=== PATIENT | male | born 1940 | race Caucasian/White ===

== ENCOUNTER 2017-04-05 09:39 | Emergency (ER) | payer MEDICARE, OTHER ==
[~2017-04-05] VITALS: Ht 182.9 cm; Wt 87.1 kg
[~2017-04-05 09:39] MED LIST changes: -ASPI81TA94 PO; -ATOR40TA24 PO; -CAR3.125 PO; -LISI-362 PO; -RANI300C8 PO; -WARF5TAB23 PO
--- NOTE | 2017-04-05 09:42 | ER Report ---
History and Physical Time Seen By MD: 09:42 HPI/ROS CHIEF COMPLAINT: Fall last evening HISTORY OF PRESENT ILLNESS: Patient is a 76-year-old male who presents to the emergency department after a fall that occurred around 8 PM last evening. Patient states that he felt dizziness just prior to the fall was unable to brace for his fall and felt completely forward onto his face and his knees. He states he did not lose consciousness but states he had quite a difficult time getting back up to a seated position. Patient did not seek medical attention at that time. He denies nausea vomiting. He denies any chest pain or pressure either prior to during or after the fall. He denies any abdominal pain denies recent illness or ill contacts. Patient reports having IL in 2004 and again in 2006 interestingly he is not on any current cardiac medications. He was a smoker but quit in 1964. Patient is somewhat of a poor historian and does change his historical facts with regard to his chief complaint and history of present illness. REVIEW OF SYSTEMS: Constitutional: No fever, no chills. Eyes: No discharge. ENT: No sore throat. Cardiovascular: No chest pain, no palpitations. Respiratory: No cough, no shortness of breath. Gastrointestinal: No abdominal pain, no vomiting. Genitourinary: No hematuria. Musculoskeletal: No back pain. Skin: No rashes. Neurological: No headache. Allergies: Coded Allergies: No Known Drug Allergies (Unverified , 04/05/17) Home Meds Reported Medications Multivitamin (MULTI-VITAMIN DAILY) 1 Each Tablet, 1 EACH PO DAILY 02/03/17 Ranitidine Hcl (ZANTAC) 150 Mg Tablet, 1 TAB PO QDAY, TAB 02/03/17 Discontinued Scripts Azithromycin (ZITHROMAX) 250 Mg Tablet, 0 PO QDAY, #6 TAB 0 Refills TAKE 2 TABLETS ON DAY 1 AND 1 TABLET ON DAYS 2-5 Prov:ROLAND SIMS DNP, HEALTH THERAPIST-BC 02/03/17 Past Medical/Surgical History Past medical history for report of myocardial infarction in 2004 2006, history of gastroesophageal reflux disease, history of tonsillectomy, history of hernia repair times three and history of skin cancer removal of the right earlobe. Patient is a former smoker quitting in 1964. Ports occasional alcohol use 3-5 drinks per week Hx Smoking: No Smoking Status: Former Smoker Constitutional Vital Sign - Last 24 Hours 04/05/17 04/05/17 04/05/17 04/05/17 09:40 09:45 09:49 09:54 Temp 97.9 Pulse 89 94 87 Resp 16 B/P (MAP) 136/87 136/87 (103) Pulse Ox 95 96 96 O2 Delivery Room Air 04/05/17 09:59 Pulse 93 Resp 25 Pulse Ox 95 Physical Exam General Appearance: The patient is alert, has no immediate need for airway protection and no signs of toxicity. Eyes: Pupils equal and round no pallor or injection. ENT, Mouth: Mucous membranes are moist. Respiratory: There are no retractions, lungs are clear to auscultation. Cardiovascular: Regular rate and rhythm. Gastrointestinal: Abdomen is soft and non tender, no masses, bowel sounds normal. Neurological: Awake, alert and oriented 3 GCS 15 Skin: Warm and dry, no rashes. Musculoskeletal: Neck is supple non tender. Extremities are nontender, nonswollen and have full range of motion. Medical Decision Making Data Points Result Diagram: 04/05/17 0958 04/05/17 0958 Laboratory Hematology Test 04/05/17 09:58 04/05/17 10:02 Red Blood Count 5.87 M/uL (4.00-5.60) Mean Corpuscular Volume 84.0 fL (80.0-96.0) Mean Corpuscular Hemoglobin 28.4 pg (26.0-33.0) Mean Corpuscular Hemoglobin Concent 33.8 g/dL (32.0-36.0) Red Cell Distribution Width 15.8 % (11.5-14.5) Mean Platelet Volume 7.7 fL (7.2-11.1) Neutrophils (%) (Auto) 71.5 % (39.4-72.5) Lymphocytes (%) (Auto) 14.6 % (17.6-49.6) Monocytes (%) (Auto) 11.3 % (4.1-12.4) Eosinophils (%) (Auto) 1.1 % (0.4-6.7) Basophils (%) (Auto) 1.5 % (0.3-1.4) Nucleated RBC Relative Count (auto) 0.3 /100WBC Neutrophils # (Auto) 5.0 K/uL (2.0-7.4) Lymphocytes # (Auto) 1.0 K/uL (1.3-3.6) Monocytes # (Auto) 0.8 K/uL (0.3-1.0) Eosinophils # (Auto) 0.1 K/uL (0.0-0.5) Basophils # (Auto) 0.1 K/uL (0.0-0.1) Nucleated RBC Absolute Count (auto) 0.02 K/uL Prothrombin Time 14.8 seconds (12.0-14.4) Prothromb Time International Ratio 1.15 Activated Partial Thromboplast Time 31 seconds (23-35) Sodium Level 144 mmol/L (137-145) Potassium Level 3.9 mmol/L (3.5-5.0) Chloride Level 107 mmol/L (98-107) Carbon Dioxide Level 24 mmol/L (22-30) Blood Urea Nitrogen 22 mg/dl (9-21) Creatinine 1.10 mg/dl (0.66-1.25) Glomerular Filtration Rate Calc > 60.0 Random Glucose 100 mg/dl (75-110) Calcium Level 9.3 mg/dl (8.4-10.2) Magnesium Level 2.1 mg/dl (1.7-2.2) Total Bilirubin 1.6 mg/dl (0.2-1.3) Aspartate Amino Transf (AST/SGOT) 26 U/L (0-35) Alanine Aminotransferase (ALT/SGPT) 34 U/L (0-56) Alkaline Phosphatase 81 U/L (0-126) Total Creatine Kinase 156 U/L (55-170) Troponin I 0.133 ng/ml Total Protein 7.2 gm/dl (6.3-8.2) Albumin 4.2 g/dl (3.5-5.0) Serum Alcohol < 10 mg/dl Urine Color Cammy Urine Clarity Slightly-cloudy Urine pH 5.0 pH (4.8-9.5) Urine Specific Hallam 1.028 Urine Protein Negative mg/dL (NEGATIVE) Urine Glucose (UA) Negative mg/dL (NEGATIVE) Urine Ketones Trace mg/dL (NEGATIVE) Urine Blood Negative (NEGATIVE) Urine Nitrite Negative (NEGATIVE) Urine Bilirubin Negative (NEGATIVE) Urine Urobilinogen 4.0 mg/dL (0.2-1.9) Urine Leukocyte Esterase Negative (NEGATIVE) Urine RBC 3 /HPF (0-2/HPF) Urine WBC 5 /HPF (0-5/HPF) Urine Squamous Epithelial Cells Few /LPF (</=FEW) Urine Bacteria Few /HPF (NONE-FEW) Urine Hyaline Casts Many /LPF (NONE-FEW) Urine Mucus Few /HPF (NONE-FEW) Chemistry Test 04/05/17 09:58 04/05/17 10:02 White Blood Count 7.0 k/uL (4.5-11.0) Red Blood Count 5.87 M/uL (4.00-5.60) Hemoglobin 16.6 g/dL (14.0-18.0) Hematocrit 49.3 % (42.0-52.0) Mean Corpuscular Volume 84.0 fL (80.0-96.0) Mean Corpuscular Hemoglobin 28.4 pg (26.0-33.0) Mean Corpuscular Hemoglobin Concent 33.8 g/dL (32.0-36.0) Red Cell Distribution Width 15.8 % (11.5-14.5) Platelet Count 274 K/uL (150-450) Mean Platelet Volume 7.7 fL (7.2-11.1) Neutrophils (%) (Auto) 71.5 % (39.4-72.5) Lymphocytes (%) (Auto) 14.6 % (17.6-49.6) Monocytes (%) (Auto) 11.3 % (4.1-12.4) Eosinophils (%) (Auto) 1.1 % (0.4-6.7) Basophils (%) (Auto) 1.5 % (0.3-1.4) Nucleated RBC Relative Count (auto) 0.3 /100WBC Neutrophils # (Auto) 5.0 K/uL (2.0-7.4) Lymphocytes # (Auto) 1.0 K/uL (1.3-3.6) Monocytes # (Auto) 0.8 K/uL (0.3-1.0) Eosinophils # (Auto) 0.1 K/uL (0.0-0.5) Basophils # (Auto) 0.1 K/uL (0.0-0.1) Nucleated RBC Absolute Count (auto) 0.02 K/uL Prothrombin Time 14.8 seconds (12.0-14.4) Prothromb Time International Ratio 1.15 Activated Partial Thromboplast Time 31 seconds (23-35) Glomerular Filtration Rate Calc > 60.0 Calcium Level 9.3 mg/dl (8.4-10.2) Magnesium Level 2.1 mg/dl (1.7-2.2) Total Bilirubin 1.6 mg/dl (0.2-1.3) Aspartate Amino Transf (AST/SGOT) 26 U/L (0-35) Alanine Aminotransferase (ALT/SGPT) 34 U/L (0-56) Alkaline Phosphatase 81 U/L (0-126) Total Creatine Kinase 156 U/L (55-170) Troponin I 0.133 ng/ml Total Protein 7.2 gm/dl (6.3-8.2) Albumin 4.2 g/dl (3.5-5.0) Serum Alcohol < 10 mg/dl Urine Color Cammy Urine Clarity Slightly-cloudy Urine pH 5.0 pH (4.8-9.5) Urine Specific Hallam 1.028 Urine Protein Negative mg/dL (NEGATIVE) Urine Glucose (UA) Negative mg/dL (NEGATIVE) Urine Ketones Trace mg/dL (NEGATIVE) Urine Blood Negative (NEGATIVE) Urine Nitrite Negative (NEGATIVE) Urine Bilirubin Negative (NEGATIVE) Urine Urobilinogen 4.0 mg/dL (0.2-1.9) Urine Leukocyte Esterase Negative (NEGATIVE) Urine RBC 3 /HPF (0-2/HPF) Urine WBC 5 /HPF (0-5/HPF) Urine Squamous Epithelial Cells Few /LPF (</=FEW) Urine Bacteria Few /HPF (NONE-FEW) Urine Hyaline Casts Many /LPF (NONE-FEW) Urine Mucus Few /HPF (NONE-FEW) Coagulation Test 04/05/17 09:58 Prothrombin Time 14.8 seconds Prothromb Time International Ratio 1.15 Activated Partial Thromboplast Time 31 seconds Toxicology Test 04/05/17 09:58 Serum Alcohol < 10 mg/dl Urinalysis Test 04/05/17 10:02 Urine Color Cammy Urine Clarity Slightly-cloudy Urine pH 5.0 pH (4.8-9.5) Urine Specific Hallam 1.028 Urine Protein Negative mg/dL (NEGATIVE) Urine Glucose (UA) Negative mg/dL (NEGATIVE) Urine Ketones Trace mg/dL (NEGATIVE) Urine Blood Negative (NEGATIVE) Urine Nitrite Negative (NEGATIVE) Urine Bilirubin Negative (NEGATIVE) Urine Urobilinogen 4.0 mg/dL (0.2-1.9) Urine Leukocyte Esterase Negative (NEGATIVE) Urine RBC 3 /HPF (0-2/HPF) Urine WBC 5 /HPF (0-5/HPF) Urine Squamous Epithelial Cells Few /LPF (</=FEW) Urine Bacteria Few /HPF (NONE-FEW) Urine Hyaline Casts Many /LPF (NONE-FEW) Urine Mucus Few /HPF (NONE-FEW) EKG/Imaging EKG Interpretation EKG shows sinus rhythm with a left bundle branch block negative for Sgarbossa criteria. There is no prior EKG to compare to. Monitor Interpretation: Normal Sinus Rhythm Imaging FACILITY: [facility] PATIENT NAME: Cas Cuello : 1940 MR: [id number] V: [id number] EXAM DATE: ORDERING PHYSICIAN: KEYUR MENDIOLA TECHNOLOGIST: Location: [facility] Patient: Cas Cuello : 1940 Visit/Account:[id number] Date of Sevice: 04/05/2017 EXAMINATION: CT Head without intravenous contrast CT Face without intravenous contrast CT Cervical spine without intravenous contrast HISTORY: Trauma. TECHNIQUE: Head: Axial images were obtained from the skull base to the vertex without intravenous contrast. Sagittal and coronal reformatted images are also submitted. Face: Axial images were obtained from the superior aspect of the orbits through the inferior aspect of mandible. Coronal and sagittal reformatted images were obtained from the axial source data. Cervical spine: Axial images were obtained from the skull base through the upper thoracic spine without IV contrast administration. Coronal and sagittal reformatted images were obtained from the axial source data. One of the following dose optimization techniques was utilized in the performance of this exam: Automated exposure control; adjustment of the mA and/ or kV according to the patient's size; or use of an iterative reconstruction technique. Specific details can be referenced in the facility's radiology CT exam operational policy. COMPARISON: None. FINDINGS: HEAD: Brain volume: Mild generalized volume loss. Ventricles: Negative. Acute ischemic changes: Age-indeterminate hypodensity in the bilateral thalamus. Hemorrhage: None. Masses / edema: None. Newton-white: Negative. White matter: Negative. Vessels: Calcified plaque of both carotid siphons. Extra-axial: Negative. Calvarium / skull base: Negative. FACE: Soft Tissues: Negative. Mandible / TMJ: Right TMJ arthritis. No acute fractures. Maxillae / pterygoid plates: Negative. Zygoma / zygomatic arches: Negative. Orbits: Negative. Nasal bones / nasal septum: Negative. Frontal bones: Negative. Sinuses: Mild mucosal thickening in the maxillary sinuses and left sphenoid sinus. CERVICAL SPINE: Alignment: Straightening and slight reversal of the normal lordosis. Cranio-cervical junction: Moderate degenerative changes. Otherwise negative. Vertebral bodies: Negative. Posterior elements: Multilevel facet hypertrophy. Hardware: None. Disc Spaces: Multilevel degenerative disc disease. Soft tissues: Negative. Visualized upper chest: Negative. IMPRESSION: 1. Age-indeterminate hypodensity in the bilateral thalamus. Brain MRI is recommended if there is concern for acute infarction. Otherwise no acute intracranial abnormality. 2. No acute cervical spine fracture. 3. No acute facial fracture. 4. Multilevel degenerative disc disease and facet hypertrophy in the cervical spine with straightening and slight reversal of the normal lordosis. 5. Mild mucosal thickening in the maxillary sinuses and left sphenoid sinus. 6. Right TMJ arthritis. Results were called to KEYUR MENDIOLA at 04/05/2017 10:43 AM. Report Dictated By: Dany Brown MD at 04/05/2017 10:32 AM Report E-Signed By: Dany Brown MD at 04/05/2017 10:45 A CXR-AP no acute process ED Course/Re-evaluation Clinical Indication for ER IV: IV Access ED Course After history and physical exam was performed differential diagnosis was formulated which includes but is not limited to concussion, traumatic brain injury, facial fractures, extremity fractures, syncope, dysrhythmias plan at this time will be to image the head C-spine and facial bones, we will also perform a cardiac workup including EKG and troponin at this time. 04/05/2017 10:57:15 am I spoke with from cardiology and Dr Weaver from who ultimately accepted the patient for admission. Diagnosis will be non -STEMI, we did discuss possibly starting the patient on heparin for transport however CT of the head without contrast remarkable for age indeterminate hypodensity in bilateral femoral IL. MRI of the brain was recommended for concern of acute infarction. I did discuss with Dr. Weaver holding heparin until they were able to perform the MRI of the brain she agreed that this would be prudent. Patient has received [address] Zhu felt that this would be appropriate and no other medications including Plavix were warranted at this time. I did explain to the patient the requirement to go to [facility] since they have the ability of. Cardiology, catheter lab and ability to workup for possible stroke. Patient very unhappy about having to go by ambulance but I explained to him that it is prudent to monitor his cardiovascular status during transport. Patient ultimately agreed to transport by ambulance to [facility] at this time Re-evaluation 04/05/2017 10:34:58 am patient remained symptom and pain-free. Troponin is elevated 0.13 indicating myocardial injury. Patient is symptom-free at this time I did speak with Dr. Zhu at [facility], history physical exam pertinent lab data were reviewed with Dr. Chavis. He agrees at this point to have the patient transferred to the hospitalist service for further cardiac evaluation. If CT scans come back unremarkable we will start the patient on heparin. He requests that we do not give Plavix at this point. They will follow troponins and [facility]. I did discuss this with the patient he is aware that we would like to transfer him to [facility] under the care of a fish hatchery man. No questions or concerns at this time Decision to Disposition Date: Apr 05, 2017 Decision to Disposition Time: 11:00 Depart Departure Latest Vital Signs Vital Signs Date Time Temp Pulse Resp B/P (MAP) Pulse Ox O2 Delivery O2 Flow Rate FiO2 04/05/17 09:59 93 25 95 04/05/17 09:45 136/87 (103) 04/05/17 09:40 97.9 Room Air Impression: Primary Impression: NSTEMI (non-ST elevated myocardial infarction) Condition: Improved Disposition: XFER TO [facility] (To Dr Weaver at [facility]) KEYUR MENDIOLA MD Apr 05, 2017 09:42
[2017-04-05] MEDS ORDERED: DIPHTH/TETANUS/ACEL. PERTUSSIS IM ONE (09:45)
--- NOTE | 2017-04-05 09:56 | EKG ---
FACILITY: [facility] PATIENT NAME: DELFINA LOYD : [id number] MR: [id number] V: [id number] EXAM DATE: ORDERING PHYSICIAN: KEYUR MENDIOLA TECHNOLOGIST: OREN Test Reason : FALL Blood Pressure : / mmHG Vent. Rate : 091 BPM Atrial Rate : 091 BPM P-R Int : 184 ms QRS Dur : 164 ms QT Int : 438 ms P-R-T Axes : -17 -62 096 degrees QTc Int : 538 ms Sinus rhythm with premature supraventricular complexes Left axis deviation Left bundle branch block Abnormal ECG No previous ECGs available Confirmed by DELFINA QUIGLEY ([id number]) on 04/05/2017 8:56:13 PM Referred By: MAURY Confirmed By:DELFINA QUIGLEY
[2017-04-05 10:04] LABS: PLATELET COUNT, AUTOMATED 274 K/uL (150-450)
[2017-04-05 10:12] LABS: INR 1.15
[2017-04-05] MEDS ORDERED: ASPIRIN 325 MG TAB PO ONE (10:35)
--- NOTE | 2017-04-05 10:50 | RADIOLOGY IMAGING REPORT ---
FACILITY: [facility] [place] PATIENT NAME: Cas Cuello : 1940 MR: [id number] V: [id number] EXAM DATE: ORDERING PHYSICIAN: KEYUR MENDIOLA TECHNOLOGIST: Location: Patient: Cas Cuello : 1940 Visit/Account:[id number] Date of Sevice: 04/05/2017 EXAMINATION: CT Head without intravenous contrast CT Face without intravenous contrast CT Cervical spine without intravenous contrast HISTORY: Trauma. TECHNIQUE: Head: Axial images were obtained from the skull base to the vertex without intravenous contrast. Sa gittal and coronal reformatted images are also submitted. Face: Axial images were obtained from the superior aspect of the orbits through the inferior aspect of mandible. Coronal and sagittal reformatted images were obtained from the axial source data. Cervical spine: Axial images were obtained from the skull base through the upper thoracic spine with out IV contrast administration. Coronal and sagittal reformatted images were obtained from the axial source data. One of the following dose optimization techniques was utilized in the performance of this exam: Autom ated exposure control; adjustment of the mA and/or kV according to the patient's size; or use of an i terative reconstruction technique. Specific details can be referenced in the facility's radiology C T exam operational policy. COMPARISON: None. FINDINGS: HEAD: Brain volume: Mild generalized volume loss. Ventricles: Negative. Acute ischemic changes: Age-indeterminate hypodensity in the bilateral thalamus. Hemorrhage: None. Masses / edema: None. Newton-white: Negative. White matter: Negative. Vessels: Calcified plaque of both carotid siphons. Extra-axial: Negative. Calvarium / skull base: Negative. FACE: Soft Tissues: Negative. Mandible / TMJ: Right TMJ arthritis. No acute fractures. Maxillae / pterygoid plates: Negative. Zygoma / zygomatic arches: Negative. Orbits: Negative. Nasal bones / nasal septum: Negative. Frontal bones: Negative. Sinuses: Mild mucosal thickening in the maxillary sinuses and left sphenoid sinus. CERVICAL SPINE: Alignment: Straightening and slight reversal of the normal lordosis. Cranio-cervical junction: Moderate degenerative changes. Otherwise negative. Vertebral bodies: Negative. Posterior elements: Multilevel facet hypertrophy. Hardware: None. Disc Spaces: Multilevel degenerative disc disease. Soft tissues: Negative. Visualized upper chest: Negative. IMPRESSION: 1. Age-indeterminate hypodensity in the bilateral thalamus. Brain MRI is recommended if there is conc vita for acute infarction. Otherwise no acute intracranial abnormality. 2. No acute cervical spine fracture. 3. No acute facial fracture. 4. Multilevel degenerative disc disease and facet hypertrophy in the cervical spine with straightenin g and slight reversal of the normal lordosis. 5. Mild mucosal thickening in the maxillary sinuses and left sphenoid sinus. 6. Right TMJ arthritis. Results were called to KEYUR MENDIOLA at 04/05/2017 10:43 AM. Report Dictated By: Dany Brown MD at 04/05/2017 10:32 AM Report E-Signed By: Dany Brown MD at 04/05/2017 10:45 A
--- NOTE | 2017-04-05 10:50 | RADIOLOGY IMAGING REPORT ---
[facility] PATIENT NAME: Cas Cuello : 1940 MR: [id number] V: [id number] EXAM DATE: ORDERING PHYSICIAN: KEYUR MENDIOLA TECHNOLOGIST: Location: [facility] Patient: Cas Cuello : 1940 Visit/Account:[id number] Date of Sevice: 04/05/2017 EXAMINATION: CT Head without intravenous contrast CT Face without intravenous contrast CT Cervical spine without intravenous contrast HISTORY: Trauma. TECHNIQUE: Head: Axial images were obtained from the skull base to the vertex without intravenous contrast. Sa gittal and coronal reformatted images are also submitted. Face: Axial images were obtained from the superior aspect of the orbits through the inferior aspect of mandible. Coronal and sagittal reformatted images were obtained from the axial source data. Cervical spine: Axial images were obtained from the skull base through the upper thoracic spine with out IV contrast administration. Coronal and sagittal reformatted images were obtained from the axial source data. One of the following dose optimization techniques was utilized in the performance of this exam: Autom ated exposure control; adjustment of the mA and/or kV according to the patient's size; or use of an i terative reconstruction technique. Specific details can be referenced in the facility's radiology C T exam operational policy. COMPARISON: None. FINDINGS: HEAD: Brain volume: Mild generalized volume loss. Ventricles: Negative. Acute ischemic changes: Age-indeterminate hypodensity in the bilateral thalamus. Hemorrhage: None. Masses / edema: None. Newton-white: Negative. White matter: Negative. Vessels: Calcified plaque of both carotid siphons. Extra-axial: Negative. Calvarium / skull base: Negative. FACE: Soft Tissues: Negative. Mandible / TMJ: Right TMJ arthritis. No acute fractures. Maxillae / pterygoid plates: Negative. Zygoma / zygomatic arches: Negative. Orbits: Negative. Nasal bones / nasal septum: Negative. Frontal bones: Negative. Sinuses: Mild mucosal thickening in the maxillary sinuses and left sphenoid sinus. CERVICAL SPINE: Alignment: Straightening and slight reversal of the normal lordosis. Cranio-cervical junction: Moderate degenerative changes. Otherwise negative. Vertebral bodies: Negative. Posterior elements: Multilevel facet hypertrophy. Hardware: None. Disc Spaces: Multilevel degenerative disc disease. Soft tissues: Negative. Visualized upper chest: Negative. IMPRESSION: 1. Age-indeterminate hypodensity in the bilateral thalamus. Brain MRI is recommended if there is conc vita for acute infarction. Otherwise no acute intracranial abnormality. 2. No acute cervical spine fracture. 3. No acute facial fracture. 4. Multilevel degenerative disc disease and facet hypertrophy in the cervical spine with straightenin g and slight reversal of the normal lordosis. 5. Mild mucosal thickening in the maxillary sinuses and left sphenoid sinus. 6. Right TMJ arthritis. Results were called to KEYUR MENDIOLA at 04/05/2017 10:43 AM. Report Dictated By: Dany Brown MD at 04/05/2017 10:32 AM Report E-Signed By: Dany Brown MD at 04/05/2017 10:45 A
--- NOTE | 2017-04-05 10:50 | RADIOLOGY IMAGING REPORT ---
FACILITY: [facility] - [place] PATIENT NAME: Cas Cuello : 1940 MR: [id number] V: [id number] EXAM DATE: ORDERING PHYSICIAN: KEYUR MENDIOLA TECHNOLOGIST: [place] [facility] [place] Patient: Cas Cuello : 1940 Visit/Account:[id number] Date of Sevice: 04/05/2017 EXAMINATION: CT Head without intravenous contrast CT Face without intravenous contrast CT Cervical spine without intravenous contrast HISTORY: Trauma. TECHNIQUE: Head: Axial images were obtained from the skull base to the vertex without intravenous contrast. Sa gittal and coronal reformatted images are also submitted. Face: Axial images were obtained from the superior aspect of the orbits through the inferior aspect of mandible. Coronal and sagittal reformatted images were obtained from the axial source data. Cervical spine: Axial images were obtained from the skull base through the upper thoracic spine with out IV contrast administration. Coronal and sagittal reformatted images were obtained from the axial source data. One of the following dose optimization techniques was utilized in the performance of this exam: Autom ated exposure control; adjustment of the mA and/or kV according to the patient's size; or use of an i terative reconstruction technique. Specific details can be referenced in the facility's radiology C T exam operational policy. COMPARISON: None. FINDINGS: HEAD: Brain volume: Mild generalized volume loss. Ventricles: Negative. Acute ischemic changes: Age-indeterminate hypodensity in the bilateral thalamus. Hemorrhage: None. Masses / edema: None. Newton-white: Negative. White matter: Negative. Vessels: Calcified plaque of both carotid siphons. Extra-axial: Negative. Calvarium / skull base: Negative. FACE: Soft Tissues: Negative. Mandible / TMJ: Right TMJ arthritis. No acute fractures. Maxillae / pterygoid plates: Negative. Zygoma / zygomatic arches: Negative. Orbits: Negative. Nasal bones / nasal septum: Negative. Frontal bones: Negative. Sinuses: Mild mucosal thickening in the maxillary sinuses and left sphenoid sinus. CERVICAL SPINE: Alignment: Straightening and slight reversal of the normal lordosis. Cranio-cervical junction: Moderate degenerative changes. Otherwise negative. Vertebral bodies: Negative. Posterior elements: Multilevel facet hypertrophy. Hardware: None. Disc Spaces: Multilevel degenerative disc disease. Soft tissues: Negative. Visualized upper chest: Negative. IMPRESSION: 1. Age-indeterminate hypodensity in the bilateral thalamus. Brain MRI is recommended if there is conc vita for acute infarction. Otherwise no acute intracranial abnormality. 2. No acute cervical spine fracture. 3. No acute facial fracture. 4. Multilevel degenerative disc disease and facet hypertrophy in the cervical spine with straightenin g and slight reversal of the normal lordosis. 5. Mild mucosal thickening in the maxillary sinuses and left sphenoid sinus. 6. Right TMJ arthritis. Results were called to KEYUR MENDIOLA at 04/05/2017 10:43 AM. Report Dictated By: Dany Brown MD at 04/05/2017 10:32 AM Report E-Signed By: Dany Brown MD at 04/05/2017 10:45 A
--- NOTE | 2017-04-05 11:13 | RADIOLOGY IMAGING REPORT ---
FACILITY: [facility] - [place] PATIENT NAME: Cas Cuello : 1940 MR: [id number] V: [id number] EXAM DATE: ORDERING PHYSICIAN: KEYUR MENDIOLA TECHNOLOGIST: Location: [facility] Patient: Cas Cuello : 1940 Visit/Account:[id number] Date of Sevice: 04/05/2017 CHEST SINGLE AP HISTORY: Altered mental status. COMPARISON: None. FINDINGS: A single portable AP view of the chest is obtained. Lines/tubes: None. Lungs/pleura: No focal consolidation, pleural effusion, or pneumothorax. Heart: Negative. Mediastinum: Negative. Bony structures/body wall: Negative. IMPRESSION: No acute cardiopulmonary process. Report Dictated By: Dany Brown MD at 04/05/2017 11:09 AM Report E-Signed By: Dany Brown MD at 04/05/2017 11:10 AM WSN:[id number]
[2017-04-05 11:30] VITALS: BP 116/89
== END 2017-04-05 11:55 | disposition short-term general hospital (02) ==
LOC: ER 09:47
DX: I21.4 Non-ST elevation (NSTEMI) myocardial infarction (principal); I44.7 Left bundle-branch block, unspecified; R94.31 Abnormal electrocardiogram [ECG] [EKG]; R41.82 Altered mental status, unspecified
CPT/HCPCS: 70450; 70486; 71045; 72125; 81001; 82550; 83735; 84484; 85025; 85610; 85730; 90471; 90715; 93005; 99285; A9270; G0480; 80320; 82040; 82247; 82310; 82374; 82435; 82565; 82947; 84075; 84132; 84155; 84295; 84450; 84460; 84520

== ENCOUNTER → 2017-04-05 | Outpatient (CLI) | payer MEDICARE, OTHER ==
[~2017-04-05] MED LIST: ASPI81TA94 PO; ATOR40TA24 PO; AZIT-1 PO; CAR3.125 PO; LISI-362 PO; MULT1TAB54 PO; RANI-324 PO; RANI300C8 PO; WARF5TAB23 PO
== END ==
LOC: AMB 11:52
PROVIDERS: ATTEND Nurse Practitioner
DX: I21.4 Non-ST elevation (NSTEMI) myocardial infarction (principal)
CPT/HCPCS: A0425; A0426

== ENCOUNTER → 2017-04-16 | Outpatient (CLI) | payer MEDICARE, OTHER ==
[~2017-04-16] MED LIST changes: +ASPI81TA94 PO; +ATOR40TA24 PO; +CAR3.125 PO; +LISI-362 PO; +RANI300C8 PO; +WARF5TAB23 PO
[2017-04-16 11:19] LABS: PLATELET COUNT, AUTOMATED 239 K/uL (150-450)
[2017-04-16 11:25] LABS: INR 3.3
[2017-04-16 11:47] LABS: LDL CHOLESTEROL 84 mg/dl
== END ==
LOC: LAB 10:46
PROVIDERS: ATTEND Nurse Practitioner Primary Care
DX: I25.10 Atherosclerotic heart disease of native coronary artery without angina pectoris (principal)
CPT/HCPCS: 36415; 82040; 82247; 82310; 82374; 82435; 82465; 82565; 82947; 83718; 84075; 84132; 84155; 84295; 84450; 84460; 84478; 84520; 85025; 85610

== ENCOUNTER → 2017-04-24 | Outpatient (CLI) | payer MEDICARE, OTHER ==
[2017-04-24 10:45] LABS: INR 4.27
== END ==
LOC: LAB 10:12
PROVIDERS: ATTEND Nurse Practitioner Primary Care
DX: I21.4 Non-ST elevation (NSTEMI) myocardial infarction (principal)
CPT/HCPCS: 36415; 85610

== ENCOUNTER → 2017-05-12 | Outpatient (CLI) | payer MEDICARE, OTHER ==
[~2017-05-12] MED LIST changes: +ASPI-1471 PO; +EPLE25TA18 PO
== END ==
LOC: LAB 16:15
PROVIDERS: ATTEND Internal Medicine Cardiovascular Disease
DX: I50.42 Chronic combined systolic (congestive) and diastolic (congestive) heart failure (principal)
CPT/HCPCS: 36415; 82310; 82374; 82435; 82565; 82947; 84132; 84295; 84520

== ENCOUNTER → 2017-05-23 | Outpatient (CLI) | payer MEDICARE, OTHER | LOC: LAB 10:25 | PROVIDERS: ATTEND Internal Medicine Cardiovascular Disease | DX: I25.10 Atherosclerotic heart disease of native coronary artery without angina pectoris (principal) | CPT/HCPCS: 36415; 82310; 82374; 82435; 82565; 82947; 84132; 84295; 84520 ==

== ENCOUNTER → 2017-06-02 | Outpatient (CLI) | payer MEDICARE, OTHER | LOC: LAB 09:55 | PROVIDERS: ATTEND Internal Medicine Cardiovascular Disease | DX: I42.9 Cardiomyopathy, unspecified (principal) | CPT/HCPCS: 36415; 82310; 82374; 82435; 82565; 82947; 84132; 84295; 84520 ==

== ENCOUNTER → 2017-06-06 | Outpatient (CLI) | payer MEDICARE, OTHER | LOC: LAB 11:22 | PROVIDERS: ATTEND Internal Medicine Cardiovascular Disease | DX: I42.9 Cardiomyopathy, unspecified (principal); I51.3 Intracardiac thrombosis, not elsewhere classified | CPT/HCPCS: 36415; 82310; 82374; 82435; 82565; 82947; 84132; 84295; 84520 ==

== ENCOUNTER → 2017-06-20 | Outpatient (CLI) | payer MEDICARE, OTHER ==
[~2017-06-20] MED LIST changes: -RANI-324 PO; +RANI-366 PO
== END ==
LOC: LAB 13:15
PROVIDERS: ATTEND Internal Medicine Cardiovascular Disease
DX: I42.9 Cardiomyopathy, unspecified (principal)
CPT/HCPCS: 36415; 82310; 82374; 82435; 82565; 82947; 84132; 84295; 84520

== ENCOUNTER → 2017-08-28 | Outpatient (CLI) | payer MEDICARE, OTHER ==
[~2017-08-28] MED LIST changes: +ATOR-1 PO; +RANI-318 PO; +SACU1TAB4 PO
[2017-08-28 11:27] LABS: INR 1.43
== END ==
LOC: LAB 10:58
PROVIDERS: ATTEND Physician Assistant
DX: I23.6 Thrombosis of atrium, auricular appendage, and ventricle as current complications following acute myocardial infarction (principal)
CPT/HCPCS: 85610

== ENCOUNTER → 2017-08-28 | Outpatient (CLI) | payer MEDICARE, OTHER ==
[2017-08-28 11:16] LABS: PLATELET COUNT, AUTOMATED 233 K/uL (150-450)
== END ==
LOC: LAB 10:48
PROVIDERS: ATTEND Nurse Practitioner Family
DX: R10.9 Unspecified abdominal pain (principal)
CPT/HCPCS: 36415; 85025

== ENCOUNTER → 2017-09-05 | Outpatient (CLI) | payer MEDICARE, OTHER ==
[2017-09-05 10:45] LABS: INR 1.76
== END ==
LOC: LAB 10:11
PROVIDERS: ATTEND Physician Assistant
DX: I23.6 Thrombosis of atrium, auricular appendage, and ventricle as current complications following acute myocardial infarction (principal)
CPT/HCPCS: 36415; 85610

== ENCOUNTER → 2017-09-19 | Outpatient (CLI) | payer MEDICARE, OTHER ==
[2017-09-19 08:34] LABS: INR 1.47
== END ==
LOC: LAB 08:00
PROVIDERS: ATTEND Physician Assistant
DX: I23.6 Thrombosis of atrium, auricular appendage, and ventricle as current complications following acute myocardial infarction (principal)
CPT/HCPCS: 36415; 85610

== ENCOUNTER → 2017-09-25 | Outpatient (CLI) | payer MEDICARE, OTHER ==
[2017-09-25 15:31] LABS: INR 1.74
== END ==
LOC: LAB 15:02
PROVIDERS: ATTEND Physician Assistant
DX: I23.6 Thrombosis of atrium, auricular appendage, and ventricle as current complications following acute myocardial infarction (principal)
CPT/HCPCS: 36415; 85610

== ENCOUNTER → 2017-10-02 | Outpatient (CLI) | payer MEDICARE, OTHER ==
[2017-10-02 11:45] LABS: INR 2.21
== END ==
LOC: LAB 11:18
PROVIDERS: ATTEND Physician Assistant
DX: I23.6 Thrombosis of atrium, auricular appendage, and ventricle as current complications following acute myocardial infarction (principal)
CPT/HCPCS: 36415; 85610

== ENCOUNTER → 2017-10-16 | Outpatient (CLI) | payer MEDICARE, OTHER ==
[2017-10-16 12:24] LABS: INR 1.94
== END ==
LOC: LAB 11:47
PROVIDERS: ATTEND Physician Assistant
DX: I23.6 Thrombosis of atrium, auricular appendage, and ventricle as current complications following acute myocardial infarction (principal)
CPT/HCPCS: 36415; 85610

== ENCOUNTER → 2017-11-06 | Outpatient (CLI) | payer MEDICARE, OTHER ==
[2017-11-06 11:17] LABS: INR 1.81
== END ==
LOC: LAB 10:58
PROVIDERS: ATTEND Internal Medicine Cardiovascular Disease
DX: I42.9 Cardiomyopathy, unspecified (principal)
CPT/HCPCS: 36415; 85610

== ENCOUNTER → 2017-11-25 | Outpatient (CLI) | payer MEDICARE, OTHER ==
[2017-11-25 10:50] LABS: INR 1.63
== END ==
LOC: LAB 09:53
PROVIDERS: ATTEND Internal Medicine Cardiovascular Disease
DX: I42.9 Cardiomyopathy, unspecified (principal)
CPT/HCPCS: 36415; 85610

== ENCOUNTER → 2017-12-09 | Outpatient (CLI) | payer MEDICARE, OTHER ==
[2017-12-09 11:33] LABS: INR 2.83
== END ==
LOC: LAB 11:11
PROVIDERS: ATTEND Internal Medicine Cardiovascular Disease
DX: I42.9 Cardiomyopathy, unspecified (principal)
CPT/HCPCS: 36415; 85610

== ENCOUNTER → 2017-12-30 | Outpatient (CLI) | payer MEDICARE, OTHER ==
[2017-12-30 12:16] LABS: INR 2.43
== END ==
LOC: LAB 11:59
PROVIDERS: ATTEND Internal Medicine Cardiovascular Disease
DX: I42.9 Cardiomyopathy, unspecified (principal)
CPT/HCPCS: 36415; 85610

== ENCOUNTER → 2018-02-03 | Outpatient (CLI) | payer MEDICARE, OTHER ==
[2018-02-03 10:30] LABS: INR 3.15
== END ==
LOC: LAB 10:00
PROVIDERS: ATTEND Internal Medicine Cardiovascular Disease
DX: I42.9 Cardiomyopathy, unspecified (principal)
CPT/HCPCS: 36415; 85610

== ENCOUNTER → 2018-03-05 | Outpatient (CLI) | payer MEDICARE, OTHER ==
[2018-03-05 10:06] LABS: INR 2.52
== END ==
LOC: LAB 09:44
PROVIDERS: ATTEND Internal Medicine Cardiovascular Disease
DX: I42.9 Cardiomyopathy, unspecified (principal)
CPT/HCPCS: 36415; 85610

== ENCOUNTER → 2018-04-16 | Outpatient (CLI) | payer MEDICARE, OTHER ==
[2018-04-16 10:17] LABS: INR 3.7
== END ==
LOC: LAB 09:58
PROVIDERS: ATTEND Internal Medicine Cardiovascular Disease
DX: I42.9 Cardiomyopathy, unspecified (principal)
CPT/HCPCS: 36415; 85610

== ENCOUNTER → 2018-05-15 | Outpatient (CLI) | payer MEDICARE, OTHER ==
[2018-05-15 10:09] LABS: INR 2.98
== END ==
LOC: LAB 09:41
PROVIDERS: ATTEND Internal Medicine Cardiovascular Disease
DX: I42.9 Cardiomyopathy, unspecified (principal)
CPT/HCPCS: 36415; 85610

== ENCOUNTER → 2018-05-25 | Outpatient (CLI) | payer MEDICARE, OTHER ==
[2018-05-25 13:51] LABS: INR 2.9
== END ==
LOC: LAB 13:18
PROVIDERS: ATTEND Internal Medicine Cardiovascular Disease
DX: I42.9 Cardiomyopathy, unspecified (principal)
CPT/HCPCS: 36415; 85610

== ENCOUNTER → 2018-06-03 | Outpatient (CLI) | payer MEDICARE, OTHER | LOC: LAB 14:00 | PROVIDERS: ATTEND Internal Medicine Cardiovascular Disease | DX: I50.9 Heart failure, unspecified (principal) | CPT/HCPCS: 36415; 82310; 82374; 82435; 82565; 82947; 84132; 84295; 84520 ==

== ENCOUNTER → 2018-06-23 | Outpatient (CLI) | payer MEDICARE, OTHER ==
[2018-06-23 10:20] LABS: INR 2.78
== END ==
LOC: LAB 09:21
PROVIDERS: ATTEND Internal Medicine Cardiovascular Disease
DX: I42.9 Cardiomyopathy, unspecified (principal)
CPT/HCPCS: 36415; 85610

== ENCOUNTER → 2018-07-21 | Outpatient (CLI) | payer MEDICARE, OTHER ==
[2018-07-21 12:04] LABS: INR 2.63
== END ==
LOC: LAB 11:34
PROVIDERS: ATTEND Internal Medicine Cardiovascular Disease
DX: I42.9 Cardiomyopathy, unspecified (principal)
CPT/HCPCS: 36415; 85610

== ENCOUNTER → 2018-08-20 | Outpatient (CLI) | payer MEDICARE, OTHER ==
[~2018-08-20] MED LIST changes: -RANI-366 PO; +RANI-54 PO
[2018-08-20 12:26] LABS: INR 2.35
== END ==
LOC: LAB 11:10
PROVIDERS: ATTEND Internal Medicine Cardiovascular Disease
DX: I42.9 Cardiomyopathy, unspecified (principal)
CPT/HCPCS: 36415; 85610

== ENCOUNTER → 2018-09-17 | Outpatient (CLI) | payer MEDICARE, OTHER ==
[2018-09-17 12:01] LABS: INR 2.22
== END ==
LOC: LAB 11:37
PROVIDERS: ATTEND Internal Medicine Cardiovascular Disease
DX: I42.9 Cardiomyopathy, unspecified (principal)
CPT/HCPCS: 36415; 85610

== ENCOUNTER → 2018-10-15 | Outpatient (CLI) | payer MEDICARE, OTHER ==
[2018-10-15 11:52] LABS: INR 2.15
== END ==
LOC: LAB 11:03
PROVIDERS: ATTEND Internal Medicine Cardiovascular Disease
DX: I42.9 Cardiomyopathy, unspecified (principal)
CPT/HCPCS: 36415; 85610